=== PATIENT | male | born 1980 | race African-American/Black ===

== ENCOUNTER 2020-06-10 17:19 | Emergency (ER) | payer BC ==
[~2020-06-10] VITALS: Ht 182.9 cm; Wt 111.1 kg
[2020-06-10 18:00] LABS: URINE BILIRUBIN NEGATIVE (Negative); URINE BLOOD NEGATIVE (Negative); URINE CLARITY CLEAR; URINE COLOR YELLOW; URINE GLUCOSE-RANDOM NEGATIVE (Negative); URINE KETONES NEGATIVE (Negative); URINE LEUKOCYTES-REFLEX NEGATIVE (Negative); URINE NITRITE-REFLEX NEGATIVE (Negative); URINE PROTEIN NEGATIVE (Negative); URINE UROBILINOGEN 0.2 E.U./dl (0.2-1.0)
[2020-06-10 18:25] VITALS: BP 133/78
== END 2020-06-10 18:26 | disposition home or self-care (01) ==
LOC: M.ERS 17:19
PROVIDERS: Nurse Practitioner Psychiatric/Mental Health
DX: R36.9 Urethral discharge, unspecified (principal); Z20.2 Contact with and (suspected) exposure to infections with a predominantly sexual mode of transmission